=== PATIENT | male | born 1990 | race Caucasian/White ===

== ENCOUNTER 2019-06-14 10:50 | Emergency (ER) | payer SELFPAY ==
[2019-06-14 10:55] VITALS: BP 147/99; PULSE 80; RESP 13; TEMP 36.4; O2SAT 99
--- NOTE | 2019-06-14 11:30 | DI.RAD.S_ITS ---
PROCEDURE: XR CHEST 1V INDICATIONS: Chest pain TECHNIQUE: One view of the chest was acquired. COMPARISON: None. FINDINGS: Surgical changes and devices: None. Lungs and pleura: Lungs are clear. No pleural effusions or pneumothorax. Mediastinum: Mediastinal contours appear normal. Heart size is normal. Bones and chest wall: No suspicious bony lesions. Overlying soft tissues appear unremarkable. IMPRESSION: Normal portable chest. Dictated by: Rashawn Rajan M.D. on 06/14/2019 at 11:44 Approved by: Rashanw Rajan M.D. on 06/14/2019 at 11:44
--- NOTE | 2019-06-14 11:32 | ED.CHESTPAIN ---
HPI - Chest Pain <SANTI Pryor - Last Filed: 06/14/19 22:05> General Chief Complaint: Chest Pain Stated Complaint: chest pains Time Seen by Provider: 06/14/19 11:08 Source: patient Mode of arrival: Ambulatory Limitations: no limitations History of Present Illness HPI narrative: 29yo male presents to the emergency department complaining of left-sided substernal chest pain that started a few hours ago and lasted about 10-15 minutes. Patient states he started to have a sudden dull aching 8/10 chest pain which lasted less than a minute and then continued to have a dull aching 4/10 left-sided chest pain in the same area. He states it was worse when he took a deep breath. Chest pain is resolved this time. However, during the episode he felt some shortness of breath and decreased focus and after the pain he felt ?I felt very low, leg when I am sick I felt very low, weak, and shaky ?. His family at the bedside states that he was talking really slow which made the worried. Patient denies any trauma, history of blood clots, history of heart problems, headaches, vision changes, fevers, chills, cough, shortness of breath, chest pain at this time, nausea, vomiting, diarrhea, or other concerns. Patient denies any recent illness. Patient states he drinks 2-3 beers approximately 5 to 6 times a week. Related Data Home Medications Medication Instructions Recorded Confirmed No Known Home Medications 06/14/19 06/14/19 Allergies Allergy/AdvReac Type Severity Reaction Status Date / Time No Known Drug Allergies Allergy Verified 07/02/18 13:27 Review of Systems <SANTI Pryor - Last Filed: 06/14/19 22:05> Review of Systems Narrative: REVIEW OF SYSTEMS: GENERAL: Denies fever, chills, malaise, or wt. loss. HENT: No head trauma or headaches. EYES: Denies vision changes. CARDIOVASCULAR: Reports chest pain, see HPI. RESPIRATORY: No shortness of breath or cough. GASTROINTESTINAL: Denies abdominal pain, nausea, vomiting, diarrhea GENITOURINARY: No flank pain, urinary incontinence, hesitancy, frequency, or dysuria. MUSCULOSKELETAL: No pain, weakness, or trauma. INTEGUMENTARY: No rash, lesions, or pruritus. NEURO: No numbness, tingling, or memory loss. PSYCH: No behavior or mood changes. Patient History <SANTI Pryor - Last Filed: 06/14/19 22:05> Medical History No significant medical problems (Acute) Social History Smoking Status: Never smoker Smoking Status: Never smoker alcohol intake frequency: 3 or more drinks per day Exam <SANTI Pryor - Last Filed: 06/14/19 22:05> Initial Vital Signs Initial Vital Signs: Vital Signs Temperature 97.6 F 06/14/19 10:55 Pulse Rate 80 06/14/19 10:55 Respiratory Rate 13 06/14/19 10:55 Blood Pressure 147/99 H 06/14/19 10:55 Pulse Oximetry 99 06/14/19 10:55 PHYSICAL EXAMINATION: GENERAL: Well groomed, alert, and cooperative. Patient initially was slow to answer questions, after administration of fluid patient answered questions promptly. HENT: Normocephalic, atraumatic. Ear canals patent. Oral mucosa is pink and moist. EYES: PERRLA, EOMIs, Conjunctiva pink, sclera white, no periorbital swelling. CHEST: Normal to inspection and without deformities. CARDIOVASCULAR: S1 and S2 sounds normal. Regular rate and rhythm, no murmurs, clicks, or bruits. No pedal edema. RESPIRATORY: Normal respiratory rate, trachea midline, airway patent. No stridor, nasal flaring or accessory muscle use. Lungs are clear in all borjas without wheeze, rhonchi, or crackles. GASTROINTESTINAL: Bowel sounds normoactive. Abdomen is soft and non-tender. No organomegaly. MUSCULOSKELETAL: Normal gait and coordination. Equal tone and mass bilaterally. EXTREMITIES: CMS intact. Moves all extremities. SKIN: Warm, dry, soft, appropriate color for ethnicity. No lesions, rashes, or wounds. NEURO: Alert and Oriented X 3. Good coordination. No ataxia, or sensory deficits, or cognitive issues. PSYCH: Appropriate affect and mood. <Beata Mata DO - Last Filed: 06/16/19 09:24> Initial Vital Signs Initial Vital Signs: Vital Signs Temperature 97.6 F 06/14/19 10:55 Pulse Rate 80 06/14/19 10:55 Respiratory Rate 13 06/14/19 10:55 Blood Pressure 147/99 H 06/14/19 10:55 Pulse Oximetry 99 06/14/19 10:55 Scores <SANTI Pryor - Last Filed: 06/14/19 22:05> HEART Score Heart Score history: Slightly Suspicious Heart Score EKG: Normal Heart Score Age: < 45 years old Heart Score risk factors: No known risk factors Heart Score troponin: < or = to normal limit Heart Score Total: 0 PERC Score Age greater than or equal to 50 years: No Heart rate greater than or equal to 100 bpm: No Room Air O2 Sat less than 95%: No Unilateral leg swelling: No Recent trauma or surgery: No Hemoptysis: No Prior PE or DVT: No Hormone Use: No Total PERC Score: 0 Course <SANTI Pryor - Last Filed: 06/14/19 22:05> Course Course Narrative: Patient remained chest pain-free throughout the emergency department stay. He states he was feeling much better after fluid administration. Orders Ordered: Discontinued Medications Sodium Chloride (Normal Saline 0.9%) 1,000 mls @ 1,000 mls/hr IV BOLUS ONE Stop: 06/14/19 12:30 Last Infusion: 06/14/19 12:52 Dose: 0 mls/hr Documented by: Admin: 06/14/19 11:45 Dose: 1,000 mls/hr Documented by: LIS Consultations Consultation #1: Patient staffed with Dr. Mata Vital Signs Vital signs: Vital Signs - 8 hr 06/14/19 14:05 Pulse Rate 73 Respiratory Rate 18 Blood Pressure [Right Arm] 138/77 Pulse Oximetry 98 <Beata Mata DO - Last Filed: 06/16/19 09:24> Orders Ordered: Discontinued Medications Sodium Chloride (Normal Saline 0.9%) 1,000 mls @ 1,000 mls/hr IV BOLUS ONE Stop: 06/14/19 12:30 Last Infusion: 06/14/19 12:52 Dose: 0 mls/hr Documented by: Admin: 06/14/19 11:45 Dose: 1,000 mls/hr Documented by: LIS Vital Signs Vital signs: Vital Signs - 8 hr 06/14/19 14:05 Pulse Rate 73 Respiratory Rate 18 Blood Pressure [Right Arm] 138/77 Pulse Oximetry 98 MDM - Chest Pain <Marisel SANTI Damico - Last Filed: 06/14/19 22:05> Medical Records Data Attestation: I reviewed the patient's medical records. Lab Data Attestation: I reviewed the patient's lab results. Result diagrams: 06/14/19 11:20 06/14/19 11:20 Labs: Lab Results 06/14/19 06/14/19 Range/Units 11:20 11:20 WBC 7.4 (4.5-11.0) X10^3/uL RBC 5.25 (4.5-5.9) X10^6/uL Hgb 16.0 (13.5-17.5) g/dL Hct 45.9 (41-53) % MCV 87.5 (80-100) fL MCH 30.5 (26-34) PG MCHC 34.9 (30-36) % RDW 12.8 (11.6-14.8) % Plt Count 253 (150-400) X10^3/uL Neut % (Auto) 71.0 (50-75) % Lymph % (Auto) 21.8 L (25-40) % Cache % (Auto) 6.2 (3-14) % Eos % (Auto) 0.5 L (2-4) % Baso % (Auto) 0.5 (0-2) % Neut # (Auto) 5200 (7618-2641) /uL Lymph # (Auto) 1600 (3671-4738) /uL Cache # (Auto) 500 (0-900) /uL Eos # (Auto) 0 (0-450) /uL Baso # (Auto) 0 (0-100) /uL Sodium 139 (137-145) mmol/L Potassium 4.2 (3.4-5.1) mmol/L Chloride 101 (98-107) mmol/L Carbon Dioxide 26 (22-32) mmol/L BUN 12 (9-20) mg/dL Creatinine 0.80 (0.66-1.25) mg/dL Estimated GFR > 60.0 (>60) mL/min BUN/Creatinine Ratio 15.0 (6-22) Glucose 93 (70-100) mg/dL Calcium 9.6 (8.4-10.2) mg/dL Total Bilirubin 2.0 H (0.2-1.3) mg/dL AST 38 (17-59) IU/L ALT 30 (<50) IU/L Alkaline Phosphatase 71 (38-126) U/L Total Creatine Kinase 228 H (55-170) U/L CK-MB (CK-2) 1.81 (<2.37) ng/mL CK-MB (CK-2) Rel Index 0.8 L (1.5-5.0) % Troponin I < 0.012 (0.01-0.034) ng/mL Total Protein 9.1 H (6.3-8.2) g/dL Albumin 5.1 H (3.5-5.0) g/dL Globulin 4.0 (1.7-4.1) g/dL Albumin/Globulin Ratio 1.3 (1.0-2.8) Lipase 879 H (23-300) U/L Urine Dip Bedside Urine Glucose Negative Bedside Urine Bilirubin - Negative Bedside Urine Ketone - Negative Urine Specific [place] 1.015 Bedside Urine Occult Blood - Negative Bedside Urine pH 6.5 Bedside Urine Protein - Negative Bedside Urine Urobilinogen - Negative Bedside Urine Nitrite - Negative Bedside Urine Leukocytes - Negative Esterase Imaging Data Chest x-ray: Radiologist's Impression: [place] [address] XRay Report Signed Patient: Boo Soliman MMR#: [id number] : 1990Acct:[id number] Age/Sex: 29 / MDate of Service: 06/14/19 Loc: ED Accession Number: [id number] Procedure: XR chest 1V Ordering Provider: Marisel Damico PROCEDURE: XR CHEST 1V INDICATIONS: Chest pain TECHNIQUE: One view of the chest was acquired. COMPARISON: None. FINDINGS: Surgical changes and devices: None. Lungs and pleura: Lungs are clear. No pleural effusions or pneumothorax. Mediastinum: Mediastinal contours appear normal. Heart size is normal. Bones and chest wall: No suspicious bony lesions. Overlying soft tissues appear unremarkable. IMPRESSION: Normal portable chest. Dictated by: Rashawn Rajan M.D. on 06/14/2019 at 11:44 Approved by: Rashawn Rajan M.D. on 06/14/2019 at 11:44 US - abdomen: Radiologist's Impression: [address] [place] [id number] Ultrasound Report Signed Patient: Boo Soliman [facility]#: [id number] : 1990Acct:[id number] Age/Sex: 29 / MDate of Service: 06/14/19 Loc: ED Accession Number: [id number] Procedure: US abdomen limited Ordering Provider: Marisel Damico PROCEDURE: US ABDOMEN LIMITED INDICATIONS: ELEVATED LIPASE/CHEST PAIN-EVALUATE FOR GALLSTONES TECHNIQUE: Real-time focused scanning was performed of the abdomen, with image documentation. COMPARISON: None. FINDINGS: No gallstones, gallbladder wall thickening, or fluid around the gallbladder. No sonographic Jackson's sign. Mild increased echogenicity in the liver. No dilated ducts. Common hepatic duct measures 3 mm. Pancreas not visualized secondary to overlying bowel gas. IMPRESSION: 1. Unremarkable gallbladder. 2. Question mild hepatic steatosis. Dictated by: Rigoberto Bowling M.D. on 06/14/2019 at 13:01 Approved by: Rigoberto Bowling M.D. on 06/14/2019 at 13:02 CT scan - abdomen/pelvis: Radiologist's Impression: [address] [address] [address] Scan Report Signed Patient: Boo Soliman [facility]#: [id number] : 1990Acct:[id number] Age/Sex: 29 / MDate of Service: 06/14/19 Loc: ED Accession Number: [id number] Procedure: CT abdomen pelvis w con Ordering Provider: Marisel Damico PROCEDURE: CT ABDOMEN PELVIS W CON INDICATIONS: High lipase, left upper quadrant/chest pain r/o pancreatitis TECHNIQUE: After the administration of intravenous contrast, 5 mm thick sections acquired from the diaphragm to the symphysis. 5 mm coronal and sagittal reformats were acquired. For radiation dose reduction, the following was used: automated exposure control, adjustment of mA and/or kV according to patient size. COMPARISON: None. FINDINGS: Image quality: Excellent. ABDOMEN: Lung bases: Lung bases are clear. Heart size is normal. Solid organs: Liver is normal in size and enhancement. Hepatic steatosis is seen. Gallbladder is within normal limits. Biliary system is non dilated. Pancreas enhances normally. Spleen is normal in size and enhancement. No peripancreatic fat stranding or fluid is seen at this time. No adrenal nodules. Kidneys demonstrate normal size and enhancement, without hydronephrosis. Peritoneum and bowel: Bowel loops demonstrate normal wall thickness and caliber. No free fluid or air. The appendix is visualized and is within normal limits. Nodes and vessels: No retroperitoneal or mesenteric adenopathy by size criteria. Aorta and inferior vena cava are normal in size. Miscellaneous: No ventral hernias. PELVIS: Genitourinary: Bladder wall thickness is normal. Miscellaneous: No inguinal hernias or adenopathy. Bones: No suspicious bony lesions. No vertebral body compression fractures. IMPRESSION: 1. No discrete pancreatic lesion. No peripancreatic inflammatory changes are noted at this time. No evidence of pseudocyst formation. 2. No bowel obstruction. Normal appendix. No free fluid of air. 3. Hepatic steatosis. Dictated by: Jose Arevalo M.D. on 06/14/2019 at 13:47 Approved by: Jose Arevalo M.D. on 06/14/2019 at 13:50 ECG Data Interpretation: Normal sinus rhythm, rate 78, ND interval 160, QTC 396. No ST elevation or ST depression. No ectopy. No T-wave abnormality. MDM Narrative Medical decision making narrative: 29-year-old healthy male presenting to the emergency department for left-sided chest pain that has since resolved. Patient's heart score is 0, Negative PERC score, no significant risk factors for cardiopulmonary etiology. Patient's lipase was elevated at 879 which may have contributed to his pain. An ultrasound was ordered which ruled out cholecystitis and cholelithiasis. CT abdomen pelvis is negative for any inflammatory or necrotic changes. Patient stated he was feeling much better after administration of fluid and continued to deny any symptoms at the emergency department stay which was approximately >2hours. Patient remained hemodynamically stable. Differential includes very pancreatitis, musculoskeletal pain, dehydration GERD, less likely significant pulmonary, gastro, or cardiac etiology due to above findings. Patient was given very strict ED return precautions for new or worsening symptoms just uncontrollable vomiting and high fevers. He was encouraged to follow up with his primary care provider next 1-2 weeks for further evaluation continue monitoring of his lipase. Patient and mother who appeared at bedside, agreed to plan of care verbalized understanding. <Beata Mata, DO - Last Filed: 06/16/19 09:24> Lab Data Labs: Lab Results 06/14/19 06/14/19 Range/Units 11:20 11:20 WBC 7.4 (4.5-11.0) X10^3/uL RBC 5.25 (4.5-5.9) X10^6/uL Hgb 16.0 (13.5-17.5) g/dL Hct 45.9 (41-53) % MCV 87.5 (80-100) fL MCH 30.5 (26-34) PG MCHC 34.9 (30-36) % RDW 12.8 (11.6-14.8) % Plt Count 253 (150-400) X10^3/uL Neut % (Auto) 71.0 (50-75) % Lymph % (Auto) 21.8 L (25-40) % Cache % (Auto) 6.2 (3-14) % Eos % (Auto) 0.5 L (2-4) % Baso % (Auto) 0.5 (0-2) % Neut # (Auto) 5200 (3997-3432) /uL Lymph # (Auto) 1600 (2784-4205) /uL Cache # (Auto) 500 (0-900) /uL Eos # (Auto) 0 (0-450) /uL Baso # (Auto) 0 (0-100) /uL Sodium 139 (137-145) mmol/L Potassium 4.2 (3.4-5.1) mmol/L Chloride 101 (98-107) mmol/L Carbon Dioxide 26 (22-32) mmol/L BUN 12 (9-20) mg/dL Creatinine 0.80 (0.66-1.25) mg/dL Estimated GFR > 60.0 (>60) mL/min BUN/Creatinine Ratio 15.0 (6-22) Glucose 93 (70-100) mg/dL Calcium 9.6 (8.4-10.2) mg/dL Total Bilirubin 2.0 H (0.2-1.3) mg/dL AST 38 (17-59) IU/L ALT 30 (<50) IU/L Alkaline Phosphatase 71 (38-126) U/L Total Creatine Kinase 228 H (55-170) U/L CK-MB (CK-2) 1.81 (<2.37) ng/mL CK-MB (CK-2) Rel Index 0.8 L (1.5-5.0) % Troponin I < 0.012 (0.01-0.034) ng/mL Total Protein 9.1 H (6.3-8.2) g/dL Albumin 5.1 H (3.5-5.0) g/dL Globulin 4.0 (1.7-4.1) g/dL Albumin/Globulin Ratio 1.3 (1.0-2.8) Lipase 879 H (23-300) U/L Urine Dip Bedside Urine Glucose Negative Bedside Urine Bilirubin - Negative Bedside Urine Ketone - Negative Urine Specific [place] 1.015 Bedside Urine Occult Blood - Negative Bedside Urine pH 6.5 Bedside Urine Protein - Negative Bedside Urine Urobilinogen - Negative Bedside Urine Nitrite - Negative Bedside Urine Leukocytes - Negative Esterase Discharge Plan Departure Patient Disposition: Home Clinical Impression: Atypical chest pain, Elevated lipase Discharge Date/Time: 06/14/19 14:37 Instructions: DI for Pancreatitis, DI for Atypical Chest Pain Activity Restrictions/Additional Instructions: Thank you for entrusting me with your care today. As discussed, your lipase, which is an enzymes a created by your pancreas, was elevated today. This may be caused by a variety of reasons, however, your ultrasound is negative for any gallstones in your CT is negative for any inflammatory or concerning changes. I suspect this may be contributing to the chest pain that you experience. Please follow up with your primary care provider in the next few weeks for further evaluation of this. I suggest avoiding alcohol next few weeks and eating a low-fat diet, low-residue diet. Return emergency department if you develop new or worsening symptoms such as severe pain, uncontrollable vomiting, high fevers, or other concerns. Prescriptions: No Action No Known Home Medications RF: 0
[2019-06-14 11:36] LABS: Add Manual Diff / Slide Review NO; Basophils Absolute Auto 0 /uL (0-100); Basophils Percent Auto 0.5 % (0-2); Eosinophils Absolute Auto 0 /uL (0-450); Eosinophils Percent Auto 0.5 % (2-4); Hematocrit 45.9 % (41-53); Lymphocytes Absolute Auto 1600 /uL (1100-4500); Lymphocytes Percent Auto 21.8 % (25-40); Mean Corpuscular HGB Conc 34.9 % (30-36); Mean Corpuscular Hemoglobin 30.5 PG (26-34); Mean Corpuscular Volume 87.5 fL (80-100); Monocytes Absolute Auto 500 /uL (0-900); Monocytes Percent Auto 6.2 % (3-14); Neutrophils Absolute Auto 5200 /uL (1500-7000); Platelet Count 253 X10^3/uL (150-400); Red Blood Cell Count 5.25 X10^6/uL (4.5-5.9); Red Cell Distribution Width 12.8 % (11.6-14.8); White Blood Cell Count 7.4 X10^3/uL (4.5-11.0)
[2019-06-14] MEDS: SODIUM CHLORIDE 0.9% 1,000 ML 1000 ML IV (11:45)
[2019-06-14 11:52] LABS: Alanine Aminotransferase 30 IU/L (<50); Albumin 5.1 g/dL (3.5-5.0); Albumin Globulin Ratio 1.3 (1.0-2.8); Alkaline Phosphatase 71 U/L (38-126); Aspartate Aminotransferase 38 IU/L (17-59); Blood Urea Nitrogen 12 mg/dL (9-20); Calcium 9.6 mg/dL (8.4-10.2); Carbon Dioxide 26 mmol/L (22-32); Chloride 101 mmol/L (98-107); Creatine Kinase 228 U/L (55-170); Estimated Glomerular Filt Rate > 60.0 mL/min (>60); Glucose 93 mg/dL (70-100); HEMOLYSIS < 15 (0-50); Lipase 879 U/L (23-300); Potassium 4.2 mmol/L (3.4-5.1); Sodium 139 mmol/L (137-145); Total Protein 9.1 g/dL (6.3-8.2)
--- NOTE | 2019-06-14 11:57 | DI.US.S_ITS ---
PROCEDURE: US ABDOMEN LIMITED INDICATIONS: ELEVATED LIPASE/CHEST PAIN-EVALUATE FOR GALLSTONES TECHNIQUE: Real-time focused scanning was performed of the abdomen, with image documentation. COMPARISON: None. FINDINGS: No gallstones, gallbladder wall thickening, or fluid around the gallbladder. No sonographic Jackson's sign. Mild increased echogenicity in the liver. No dilated ducts. Common hepatic duct measures 3 mm. Pancreas not visualized secondary to overlying bowel gas. IMPRESSION: 1. Unremarkable gallbladder. 2. Question mild hepatic steatosis. Dictated by: Rigoberto Bowling M.D. on 06/14/2019 at 13:01 Approved by: Rigoberto Bowling M.D. on 06/14/2019 at 13:02
[2019-06-14 12:03] VITALS: BP 132/85; PULSE 75; RESP 18; O2SAT 96
[2019-06-14 12:04] LABS: Troponin I < 0.012 ng/mL (0.01-0.034)
[2019-06-14 12:08] LABS: CKMB % Relative Index 0.8 % (1.5-5.0); Creatine Kinase MB 1.81 ng/mL (<2.37)
[2019-06-14 13:00] VITALS: BP 132/91; PULSE 70; RESP 18; O2SAT 99
--- NOTE | 2019-06-14 13:19 | DI.CT.S_ITS ---
PROCEDURE: CT ABDOMEN PELVIS W CON INDICATIONS: High lipase, left upper quadrant/chest pain r/o pancreatitis TECHNIQUE: After the administration of intravenous contrast, 5 mm thick sections acquired from the diaphragm to the symphysis. 5 mm coronal and sagittal reformats were acquired. For radiation dose reduction, the following was used: automated exposure control, adjustment of mA and/or kV according to patient size. COMPARISON: None. FINDINGS: Image quality: Excellent. ABDOMEN: Lung bases: Lung bases are clear. Heart size is normal. Solid organs: Liver is normal in size and enhancement. Hepatic steatosis is seen. Gallbladder is within normal limits. Biliary system is non dilated. Pancreas enhances normally. Spleen is normal in size and enhancement. No peripancreatic fat stranding or fluid is seen at this time. No adrenal nodules. Kidneys demonstrate normal size and enhancement, without hydronephrosis. Peritoneum and bowel: Bowel loops demonstrate normal wall thickness and caliber. No free fluid or air. The appendix is visualized and is within normal limits. Nodes and vessels: No retroperitoneal or mesenteric adenopathy by size criteria. Aorta and inferior vena cava are normal in size. Miscellaneous: No ventral hernias. PELVIS: Genitourinary: Bladder wall thickness is normal. Miscellaneous: No inguinal hernias or adenopathy. Bones: No suspicious bony lesions. No vertebral body compression fractures. IMPRESSION: 1. No discrete pancreatic lesion. No peripancreatic inflammatory changes are noted at this time. No evidence of pseudocyst formation. 2. No bowel obstruction. Normal appendix. No free fluid of air. 3. Hepatic steatosis. Dictated by: Jose Arevalo M.D. on 06/14/2019 at 13:47 Approved by: Jose Arevalo M.D. on 06/14/2019 at 13:50
[2019-06-14 14:05] VITALS: BP 138/77; PULSE 73; RESP 18; O2SAT 98
== END 2019-06-14 14:37 | disposition home or self-care (01) ==
PROVIDERS: Emergency Provider Nurse Practitioner
DX: R07.89 Other chest pain (principal); R74.8 Abnormal levels of other serum enzymes
CPT/HCPCS: 36415; 71045; 74177; 76705; 80053; 81003; 82550; 82553; 83690; 84484; 85025; 93005; 96360; 99284